=== PATIENT | male | born 1995 | race Caucasian/White ===

== ENCOUNTER 2019-04-18 18:34 | Emergency (ER) | payer OTHER ==
[~2019-04-18] VITALS: Ht 165.1 cm; Wt 72.6 kg
[2019-04-18 18:36] VITALS: BP 120/74
--- NOTE | 2019-04-18 18:36 | NUR ---
PT TRIAGED IN CHAIR E.
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
[2019-04-18] MEDS ORDERED: BACITRACIN OINT 500 UNITS/GM PKT TP ONE (19:00)
[2019-04-18 19:19] VITALS: BP 129/82
--- NOTE | 2019-04-18 19:19 | NUR ---
Patient discharged with v/s stable. Written and verbal after care instructions given and explained. Patient verbalized understanding. Police with in custody. All questions addressed prior to discharge. Advised to follow up with PMD.
== END 2019-04-18 19:19 | disposition home or self-care (01) ==
LOC: MED 18:34
DX: S00.81XA Abrasion of other part of head, initial encounter (principal); J45.909 Unspecified asthma, uncomplicated; F17.210 Nicotine dependence, cigarettes, uncomplicated; Z02.89 Encounter for other administrative examinations; W51.XXXA Accidental striking against or bumped into by another person, initial encounter; Y93.89 Activity, other specified; Y92.89 Other specified places as the place of occurrence of the external cause; Y99.8 Other external cause status
CPT/HCPCS: 99283